=== PATIENT | male | born 1990 | race Caucasian/White ===

== ENCOUNTER 2019-06-18 11:16 | Outpatient (CLI) | payer OTHER, SELFPAY ==
[2019-06-18 11:38] LABS: Hematocrit 21.4 % (42.0-52.0); Hemoglobin 7.1 g/dL (14.0-18.0); Mean Corpuscular HGB Conc 33.2 g/dl (32-36); Mean Corpuscular Hemoglobin 34.6 pg (26-34); Mean Corpuscular Volume 104.4 fl (80-100); Mean Platelet Volume 9.8 fl (7.4-10.4); Platelet Count Result 81 k/mm3 (150-375); Red Blood Count 2.05 M/mm3 (4.6-6.20); Red Cell Distribution Width 17.2 % (11.5-14.5); White Blood Count 11.2 K/mm3 (4.5-10.0)
[2019-06-18 12:14] LABS: Blastocytes 64 %; Lymphocytes Absolute Manual 1.79 K/mm3 (1.1-4.5); Metamyelocytes Percent 4 %; Monocytes Absolute Manual 0.44 K/mm3 (0.1-0.90); Monocytes Percent Manual 4 % (3-9); Myelocytes Percent 1 %; Neutrophils Percent Manual 6 % (46-73); Promyelocytes Percent 5 %; Total Cells Counted 100
[2019-06-18 12:15] LABS: Platelet Estimate Decreased (Adequate); Tear Drop Cells 1+ (NORMAL)
[2019-06-18 12:37] LABS: Smudge Cells MODERATE
[2019-06-18 14:43] LABS: Alanine Aminotransferase 25 U/L (4-50); Albumin Level 4.5 g/dL (3.5-5.1); Alkaline Phosphatase 86 U/L (38-126); Aspartate Amino Transferase 23 U/L (17-59); Bilirubin,Total 0.4 mg/dL (0.2-1.3); Blood Urea Nitrogen 14 mg/dL (9-20); Calcium 9.3 mg/dL (8.4-10.2); Carbon Dioxide 26 mmol/L (22-30); Chloride 99 mmol/L (98-107); Estimated Glomerular Filt Rate > 60; Glucose 95 mg/dL (75-110); Lactate Dehydrogenase 716 U/L (313-618); Sodium 138 mmol/L (137-145)
== END 2019-06-18 11:17 | disposition home or self-care (01) ==
LOC: ANHLAB 11:23
PROVIDERS: PCP Nurse Practitioner Family; Visit Provider Internal Medicine Hematology & Oncology
DX: R59.9 Enlarged lymph nodes, unspecified (principal)
CPT/HCPCS: 36415; 80053; 83615; 85025

== ENCOUNTER 2019-12-28 15:14 | Emergency (ER) | payer OTHER, SELFPAY ==
[2019-12-28] VITALS (9 sets, daily range): BP systolic 118–135; BP diastolic 74–87; PULSE 83–111; RESP 16–20; TEMP 36.3; O2SAT 97–100
--- NOTE | ~2019-12-28 | CT_ITS ---
EXAMINATION: CTA chest PE protocol EXAM DATE: 12/28/2019 19:22 INDICATION: Sternal chest pain started today. TECHNIQUE: Spiral CTA of the chest (pulmonary arteries) was performed with 100 cc Omnipaque 350 intr avenous contrast injection. Images were acquired during the pulmonary arterial phase. Coronal maxi mum intensity projection 3D-reconstructions were created by the technologist on dedicated workstation . Axial, coronal and sagittal reformatted images were reviewed. The dose-length product (DLP) for t his examination was 468.60 mGy-cm. The exposure was tailored according to patient size (auto mA exp osure control), and iterative reconstruction (ASIR) was used as additional dose reduction technique. There is no prior study for comparison. FINDINGS: Pulmonary arteries are well opacified and without intraluminal filling defects. No thora cic aortic dissection. Small regions of ill-defined left perihilar, left lower lobe groundglass airs pace disease and septal thickening. Could be early acute infectious process, clinical correlation. T here are no pleural or pericardial effusions. Tracheobronchial tree is patent. There is no medias tinal, hilar or axillary lymphadenopathy. There is no pneumothorax. Heart normal in size. No ev idence of coronary arterial calcification. Upper abdomen is unremarkable. The bones are unremarkab le. IMPRESSION: 1. No pulmonary emboli. 2. Small Ill-defined left perihilar, infrahilar groundglass opacities and interlobular thickening, c ould be developing acute infectious process. Reviewed, dictated and finalized at location A. IMPRESSION: 1. No pulmonary emboli. 2. Small Ill-defined left perihilar, infrahilar groundglass opacities and inte rlobular thickening, could be developing acute infectious process.
--- NOTE | ~2019-12-28 | XR_ITS ---
EXAMINATION: XR chest 1V portable DATE: 12/28/2019 16:23 INDICATION: Sternal chest pain. TECHNIQUE: A single frontal view of the chest was obtained. COMPARISON: None. FINDINGS: The chest demonstrates clear lungs without pneumonia, pleural effusion, or pneumothorax. Th e heart size is normal. A right internal jugular central venous catheter is seen with tip in the supe rior vena cava. IMPRESSION: 1. No acute cardiopulmonary disease. Reviewed, dictated and finalized at location B.
--- NOTE | 2019-12-28 15:59 | ECG_ITS ---
Measurements Intervals [place] Rate: 106 P: 47 AK: 125 QRS: 0 QRSD: 96 T: 59 QT: 321 QTc: 428 Interpretive Statements SINUS TACHYCARDIA BORDERLINE ST-T WAVE ABNORMALITY- DIFFUSE LEADS BASELINE ARTIFACT- I, AVL, V4-V5 ABNORMAL ECG Electronically Signed On 12-28-2019 16:27:58 CDT by Reagan Powell D.O.
--- NOTE | 2019-12-28 16:29 | ED.GENADULT ---
HPI - General Adult General Chief complaint: Chest Pain Stated complaint: cp while clearing central line, low bp Time Seen by Provider: 12/28/19 15:38 History of Present Illness HPI narrative: Patient is a 29 y/o male complaining of midsternal chest pain starting approximately 3-4 hours ago. He states that visiting nurse is flushing his central line when this happened. He describes the pain as a pressure and rates it as 5/10. There is no pain radiation. Of note, he has AML and had recent bacteremia possibly due to chemo. He was recently hospitalized at [facility]. He is on home IV antibiotics for bacteremia. Related Data Home Medications Medication Instructions Recorded Confirmed oxacillin 1 unit IV Q4H 12/28/19 pantoprazole 40 mg PO DAILY 12/28/19 posaconazole [Noxafil] 300 mg PO DAILY 12/28/19 valacyclovir 500 mg PO BID 12/28/19 Allergies Allergy/AdvReac Type Severity Reaction Status Date / Time chlorhexidine Allergy Rash Verified 12/28/19 16:07 Review of Systems Constitutional: Constitutional: Denies chills, Denies fever(s), Denies headache(s) and Denies weakness Eyes: Eyes: Denies blurry vision ENT: Denies headache(s) and Denies neck pain Cardiovascular: Cardiovascular: Reports chest pain Respiratory: Respiratory: Reports cough and Denies dyspnea Gastrointestinal: Gastrointestinal: Denies abdominal pain, Denies diarrhea, Denies nausea and Denies vomiting Genitourinary: Genitourinary: Denies hematuria and Denies dysuria Musculoskeletal: Musculoskeletal: Denies back pain and Denies neck pain Neurologic: Denies headache(s) and Denies weakness PMFSH Social History Social History Gender identity (if verbalized by the patient): Male Exam Const: General: no acute distress and well developed Orientation/consciousness: oriented to person, oriented to place, oriented to time and patient oriented x3 HENMT: Head: normocephalic Ears: external ears normal General nose exam: Normal external nose present Eyes: General: appearance normal, both eyes and all related structures Conjunctivae: conjunctivae normal Neck: Neck: normal visual inspection and full ROM Chest: Chest palpation & inspection: normal inspection of the chest and no tenderness Resp: Effort & Inspection: normal respiratory effort Auscultation: clear to auscultation bilaterally Cardio: Rate: regular rate Rhythm: regular rhythm GI: GI Palp: No abdominal tenderness and Yes Soft to palpation Skin: General skin exam: normal color and turgor normal Neuro: General: oriented to person, oriented to place, oriented to time and patient oriented x3 Cognition (Neuro): normal cognition Extrem: General: normal to inspection, full ROM and no pedal edema Psych: Appearance: grossly normal Mental Status: mental status grossly normal Affect: normal affect Course Consultations Consultation #1: Discussed with Dr. Nava (oncology) at [facility], who recommend CTA to r/o PE. He states that patient can be discharged if CT is negative and repeat Troponin does not trend up. Date: 12/28/19 Time: 18:50 Consultation #2: Discussed with Dr. Nava about CT finding. Recommends no specific treatment for possible infection as patient does not have pneumonia symptoms. Date: 12/28/19 Time: 20:57 Vital Signs Vital signs: Vital Signs Temperature 36.3 C L 12/28/19 15:16 Pulse Rate 83 12/28/19 15:16 Respiratory Rate 16 12/28/19 15:16 Blood Pressure 123/74 12/28/19 15:16 Pulse Oximetry 98 12/28/19 15:16 Temperature 36.3 C L 12/28/19 15:16 Pulse Rate 104 H 12/28/19 22:11 Respiratory Rate 20 12/28/19 22:11 Blood Pressure 121/78 12/28/19 21:45 Pulse Oximetry 100 12/28/19 22:11 Medical Decision Making Vital Signs Vital Signs: Vital Signs Temperature 36.3 C L 12/28/19 15:16 Pulse Rate 83 12/28/19 15:16 Respiratory Rate 16 12/28/19 15:16 Blood Pressure 123/74 12/28/19 15:1
[2019-12-28 16:46] LABS: Hematocrit 25.3 % (42.0-52.0); Hemoglobin 8.9 g/dL (14.0-18.0); Immature Granulocyte Absolute 0.02 K/mm3 (0.00-0.031); Immature Granulocyte Percent A 0.3 % (0-0.5); Immature Platelet Fraction Pct 3.9 % (0.9-11.2); Lymphocytes Absolute Auto 0.36 K/mm3 (0.9-3.2); Lymphocytes Percent Auto 5.7 % (18.3-44.2); Mean Corpuscular HGB Conc 35.2 g/dl (32-36); Mean Corpuscular Hemoglobin 31.6 pg (26-34); Mean Corpuscular Volume 89.7 fl (80-100); Mean Platelet Volume 12.5 fl (7.4-10.4); Monocytes Absolute Auto 0.7 K/mm3 (0.1-0.6); Monocytes Percent Auto 10.8 % (2.6-8.5); Neutrophils Absolute Auto 5.3 K/mm3 (1.3-6.7); Neutrophils Percent Auto 83.2 % (45.5-73.1); Platelet Count Result 58 k/mm3 (150-375); Red Blood Count 2.82 M/mm3 (4.6-6.20); Red Cell Distribution Width 12.7 % (11.5-14.5); White Blood Count 6.4 K/mm3 (4.5-10.0)
[2019-12-28 16:55] LABS: Ovalocytes 1+ (NORMAL); Platelet Estimate Decreased (Adequate)
[2019-12-28 16:56] LABS: Alanine Aminotransferase 40 U/L (4-50); Alkaline Phosphatase 115 U/L (38-126); Anion Gap 8 mmol/L (8-16); Aspartate Amino Transferase 31 U/L (17-59); Bilirubin,Total 0.4 mg/dL (0.2-1.3); Blood Urea Nitrogen 9 mg/dL (9-20); Calcium 8.9 mg/dL (8.4-10.2); Carbon Dioxide 26 mmol/L (22-30); Chloride 103 mmol/L (98-107); Estimated CRCL calculation 125 ml/min; Estimated Glomerular Filt Rate > 60; Glucose 98 mg/dL (75-110); Potassium 3.8 mmol/L (3.4-5.0); Sodium 137 mmol/L (137-145)
[2019-12-28 16:58] LABS: D Dimer 0.46 ug/mL (<0.48)
[2019-12-28 17:05] LABS: NT Pro B Type Natriuretic Pept 75 PG/ML (5-100)
[2019-12-28 17:12] LABS: Troponin I 0.038 ng/mL (0.000-0.034)
[2019-12-28 20:19] LABS: Troponin I < 0.012 ng/mL (0.000-0.034)
== END 2019-12-28 22:13 | disposition home or self-care (01) ==
PROVIDERS: Emergency Provider Emergency Medicine; PCP Nurse Practitioner Family
DX: R07.2 Precordial pain (principal); R00.0 Tachycardia, unspecified; R94.31 Abnormal electrocardiogram [ECG] [EKG]
CPT/HCPCS: 36415; 71045; 71275; 80053; 83880; 84484; 85025; 85055; 85380; 93005; 99284; Q9967

== ENCOUNTER 2020-06-02 23:43 | Emergency (ER) | payer OTHER, SELFPAY ==
[2020-06-02 23:48] VITALS: BP 135/101; PULSE 92; RESP 20; TEMP 36.6; O2SAT 99
--- NOTE | 2020-06-02 23:59 | ED.NEUROSD ---
HPI - Neuro Symptoms/Deficit General Chief Complaint: Unspecified Stated Complaint: Muscle Spasms Time Seen by Provider: 06/02/20 23:48 History of Present Illness HPI Narrative: 29 yo male w/ AML presents with slurred speech and jaw spasms. He had his first dose of new chemotherapy yesterday. He was having nausea afterwords and took Compazine. Last night he noted intermittent mild slurred speech. Today he has had this plus uncontrolled clenching of his teeth. He has never had this before. He denies any other symptoms at this time. Related Data Home Medications Medication Instructions Recorded Confirmed pantoprazole 40 mg PO DAILY 12/28/19 02/15/20 posaconazole [Noxafil] 300 mg PO DAILY 12/28/19 02/15/20 valacyclovir 500 mg PO BID 12/28/19 02/15/20 Allergies Allergy/AdvReac Type Severity Reaction Status Date / Time chlorhexidine Allergy Rash Verified 02/09/20 10:34 Review of Systems Review of Systems: All systems reviewed & are unremarkable except as noted in HPI and below Constitutional: Constitutional: Denies chills, Denies fever(s) and Denies weakness Eyes: Eyes: Denies change in vision ENT: Denies sore throat Cardiovascular: Cardiovascular: Denies chest pain Respiratory: Respiratory: Denies dyspnea Gastrointestinal: Gastrointestinal: Denies abdominal pain, Denies nausea and Denies vomiting Neurologic: Denies confusion and Denies weakness [facility] Past Medical History Medical History (Updated 06/03/20 @ 00:22 by Santi Kidd MD) History of blood transfusion Leukemia Surgical History Surgical History History of removal of skin mole Social History Social History Smoking status: Never smoker Alcohol intake: current Additional occupation/education comments: Logistics Gender identity (if verbalized by the patient): Male Exam Const: General: healthy appearing, no acute distress and alert Orientation/consciousness: patient oriented x3 HENMT: Other: Mild tongue deviation to the right. Increased tone in right muscles of mastication Eyes: Pupils: Equal, round and reactive pupils present Neck: Neck: normal visual inspection Chest: Chest palpation & inspection: no tenderness Other: triple lumen in right chest Cardio: Jugular venous distension: no JVD Skin: General skin exam: normal color Neuro: General: patient oriented x3 and moves all extremities Speech: normal speech Gait exam (Neuro): Normal gait present Extrem: General: normal to inspection Psych: Appearance: well kempt Affect: normal affect Course Vital Signs Vital signs: Vital Signs Temperature 36.6 C 06/02/20 23:48 Pulse Rate 92 06/02/20 23:48 Respiratory Rate 20 06/02/20 23:48 Blood Pressure 135/101 H 06/02/20 23:48 Pulse Oximetry 99 06/02/20 23:48 Temperature 36.6 C 06/02/20 23:48 Pulse Rate 93 06/03/20 00:18 Respiratory Rate 16 06/03/20 00:18 Blood Pressure 132/92 H 06/03/20 00:18 Pulse Oximetry 100 06/03/20 00:18 MDM - Neuro Symptoms/Deficit MDM Narrative Medical decision making narrative: He most likely has dyskinesia from Compazine. He responded quickly to benadryl. Medical Records Attestation: I reviewed the patient's medical records. Lab Data Attestation: I reviewed the patient's lab results. Discharge Plan Discharge Clinical Impression: Dyskinesia of mandible Patient Disposition: Home, Self-Care Condition: Stable Instructions: Antibiotic Form Prescriptions: New lorazepam [Ativan] 1 mg tablet 1 mg PO BID PRN (Reason: muscle spasm or nausea) Qty: 5 RF: 0 No Action valacyclovir 500 mg tablet 500 mg PO BID RF: 0 pantoprazole 40 mg tablet,delayed release (DR/EC) 40 mg PO DAILY RF: 0 posaconazole [Noxafil] 100 mg tablet,delayed release (DR/EC) 300 mg PO DAILY RF: 0 Follow-up/Referrals: Sakshi,Da
[2020-06-03] MEDS: diphenhydrAMINE HCl INJ 50 MG/ML VIAL IV PUSH (00:07)
--- NOTE | 2020-06-03 00:07 | PC.NURSE ---
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 He has been taking compazine the last 2 days for nausea.
[2020-06-03 00:18] VITALS: BP 132/92; PULSE 93; RESP 16; O2SAT 100
== END 2020-06-03 00:38 | disposition home or self-care (01) ==
PROVIDERS: Emergency Provider Emergency Medicine; PCP Nurse Practitioner Family
DX: G24.4 Idiopathic orofacial dystonia (principal); C95.90 Leukemia, unspecified not having achieved remission; Z79.899 Other long term (current) drug therapy
CPT/HCPCS: 96374; 99284; J1200

== ENCOUNTER 2020-10-31 11:32 | Emergency (ER) | payer OTHER, SELFPAY ==
[2020-10-31] VITALS (11 sets, daily range): BP systolic 93–109; BP diastolic 75–81; PULSE 85–112; RESP 11–28; TEMP 37.1; O2SAT 96–100
--- NOTE | ~2020-10-31 | CT_ITS ---
EXAMINATION: CTA chest PE protocol EXAM DATE: 10/31/2020 13:36 INDICATION: Midsternal chest pain. Leukemia. TECHNIQUE: Spiral CTA of the chest (pulmonary arteries) was performed with 100 cc Omnipaque 350 intr avenous contrast injection. Images were acquired during the pulmonary arterial phase. Coronal maxi mum intensity projection 3D-reconstructions were created by the technologist on dedicated workstation . Axial, coronal and sagittal reformatted images were reviewed. The dose-length product (DLP) for t his examination was 413.35 mGy-cm. The exposure was tailored according to patient size (auto mA exp osure control), and iterative reconstruction (ASIR) was used as additional dose reduction technique. Comparison is made to prior examination from 12/28/2019. FINDINGS: Pulmonary arteries are well opacified and without intraluminal filling defects. There is a right-sided catheter with tip at the cavoatrial junction. Mild hyperinflation. No thoracic aortic di ssection. The lungs are clear, resolution of previously seen small amount of pneumonitis. There ar e no pleural or pericardial effusions. Tracheobronchial tree is patent. There is no mediastinal, hilar or axillary lymphadenopathy. There is no pneumothorax. Heart normal in size. No evidence of coronary arterial calcification. Upper abdomen is unremarkable. There is thoracic spondylosis w ithout osteoblastic or osteolytic lesions identified. IMPRESSION: No suspicious cardiopulmonary findings. Reviewed, dictated and finalized at location B.
--- NOTE | 2020-10-31 11:51 | ECG_ITS ---
Measurements Intervals [place] Rate: 101 P: 67 ND: 118 QRS: 67 QRSD: 106 T: 61 QT: 322 QTc: 417 Interpretive Statements SINUS TACHYCARDIA WITH SHORT ND INTERVAL DELAYED PRECORDIAL R/S TRANSITION NONSPECIFIC ST & T-WAVE ABNORMALITY- INFERIOR LEADS BASELINE ARTIFACT- II, III, AVR, AVL, AVF, V2-V6 BORDERLINE ECG Electronically Signed On 10-31-2020 12:37:10 CDT by Reagan Powell D.O.
[2020-10-31 12:09] LABS: Basophils Percent Auto 0.3 % (0.2-1.2); Eosinophils Absolute Auto 0.4 K/mm3 (0-0.3); Eosinophils Percent Auto 4.8 % (0-4.4); Hematocrit 37.2 % (42.0-52.0); Hemoglobin 12.7 g/dL (14.0-18.0); Immature Granulocyte Absolute 0.11 K/mm3 (0.00-0.031); Immature Granulocyte Percent A 1.2 % (0-0.5); Lymphocytes Absolute Auto 1.15 K/mm3 (0.9-3.2); Lymphocytes Percent Auto 12.7 % (18.3-44.2); Mean Corpuscular HGB Conc 34.1 g/dl (32-36); Mean Corpuscular Volume 99.5 fl (80-100); Mean Platelet Volume 8.9 fl (7.4-10.4); Monocytes Absolute Auto 0.7 K/mm3 (0.1-0.6); Monocytes Percent Auto 8.2 % (2.6-8.5); Neutrophils Absolute Auto 6.6 K/mm3 (1.3-6.7); Neutrophils Percent Auto 72.8 % (45.5-73.1); Platelet Count Result 117 k/mm3 (150-375); Red Blood Count 3.74 M/mm3 (4.6-6.20)
[2020-10-31 12:17] LABS: Lipase 109 U/L (23-300)
[2020-10-31 12:31] LABS: Troponin I < 0.012 ng/mL (0.000-0.034)
[2020-10-31 12:57] LABS: Blood Urea Nitrogen 11 mg/dL (9-20); Creatine Kinase < 20 U/L (55-170)
[2020-10-31 13:33] LABS: Estimated Glomerular Filt Rate > 60
--- NOTE | 2020-10-31 13:55 | ED.CHESTPAIN ---
HPI - Chest Pain General Chief Complaint: Chest Pain Stated Complaint: CHEST PAIN, HX LEUKEMIA Time Seen by Provider: 10/31/20 11:38 History of Present Illness HPI narrative: Patient is a 30-year-old male with multiple medical issues who presents to the ER with chest pain. Ongoing over the last few days. Central and aching. Sometimes burning. He has been taking Protonix in the evening and took another one this morning. He has history of ALL and AML. He has undergone stem cell transplant after chemotherapy. Patient has no exertional component to his chest pain. No nausea/vomiting/shortness of breath. He is without fevers or chills. He has been recently diagnosed with C. difficile and is currently taking oral vancomycin. He also had a fever 1 week ago for which she is started on Levaquin. He is also on maintenance Bactrim and valacyclovir. Patient reports if he takes a deep breath the air often makes his chest feel better. Related Data Home Medications Medication Instructions Recorded Confirmed pantoprazole 40 mg PO DAILY 12/28/19 02/15/20 posaconazole [Noxafil] 300 mg PO DAILY 12/28/19 02/15/20 valacyclovir 500 mg PO BID 12/28/19 02/15/20 Allergies Allergy/AdvReac Type Severity Reaction Status Date / Time prochlorperazine Allergy Severe Other Verified 06/03/20 00:38 [From Compazine] chlorhexidine Allergy Rash Verified 02/09/20 10:34 Review of Systems Review of Systems: All systems reviewed & are unremarkable except as noted in HPI and below Constitutional: Constitutional: Denies chills, Denies fever(s) and Denies weakness ENT: Denies nasal congestion and Denies sore throat Cardiovascular: Cardiovascular: Reports chest pain, Denies rapid heart rate and Denies radiating jaw, neck or arm pain Respiratory: Respiratory: Denies cough and Denies dyspnea Gastrointestinal: Gastrointestinal: Denies abdominal pain, Reports heartburn, Denies nausea and Denies vomiting [facility] Past Medical History Medical History (Updated 10/31/20 @ 14:36 by Luther Castellano MD) History of blood transfusion Leukemia Surgical History Surgical History History of removal of skin mole Social History Social History Smoking status: Never smoker Alcohol intake: current Additional occupation/education comments: Logistics Gender identity (if verbalized by the patient): Male Exam Narrative: Exam Narrative: GENERAL: Chronically ill-appearing, well-nourished, and in no acute distress. HEAD: Normocephalic, atraumatic. Lacks hair from chemotherapy. EYES: PERRL and EOMI. CHEST: Clear to auscultation. No respiratory distress. HEART: Regular rate and rhythm. Normal peripheral pulses. ABDOMEN: Soft, nontender, nondistended. EXTREMITIES: Normal range of motion. No edema. SKIN: Warm, dry, no rash. NEURO: Alert and oriented x3. PSYCH: Normal mood and affect. Course Course Emergency Course: Patient resting comfortably. Pain is very minimal since presentation. Suspect patient has component of reflux that is causing irritation. He has not been taking his evening medications with food will take them right before he goes to sleep. This may be causing component of reflux esophagitis. Encouraged him to continue taking Protonix twice a day and to follow-up with his doctor. Vital Signs Vital signs: Vital Signs Temperature 98.7 F 10/31/20 11:39 Pulse Rate 112 H 10/31/20 11:39 Respiratory Rate 12 10/31/20 11:39 Blood Pressure 109/81 10/31/20 11:39 Pulse Oximetry 100 10/31/20 11:39 Temperature 98.7 F 10/31/20 11:39 Pulse Rate 104 H 10/31/20 11:55 Respiratory Rate 12 10/31/20 11:39 Blood Pressure 109/81 10/31/20 11:39 Pulse Oximetry 100 10/31/20 11:39 MDM - Chest Pain Lab Data Result diagrams: 10/31/20 11:55 10/31/20 13:31 Labs: Lab Results 0
[2020-10-31 15:14] LABS: Anion Gap 12 mmol/L (8-16); Blood Urea Nitrogen 11 mg/dL (9-20); Calcium 9.5 mg/dL (8.4-10.2); Carbon Dioxide 21 mmol/L (22-30); Chloride 105 mmol/L (98-107); Estimated Glomerular Filt Rate > 60; Glucose 126 mg/dL (75-110); Potassium 3.3 mmol/L (3.4-5.0); Sodium 138 mmol/L (137-145)
== END 2020-10-31 14:45 | disposition home or self-care (01) ==
PROVIDERS: Emergency Provider Emergency Medicine; PCP Nurse Practitioner Family
DX: R07.89 Other chest pain (principal); Z85.6 Personal history of leukemia; Z92.21 Personal history of antineoplastic chemotherapy; Z94.84 Stem cells transplant status; R00.0 Tachycardia, unspecified; R94.31 Abnormal electrocardiogram [ECG] [EKG]
CPT/HCPCS: 36415; 71275; 80048; 82550; 83690; 84484; 84520; 85025; 93005; 99284; Q9967